=== PATIENT | male | born 1965 | race American Indian/Alaskan Native ===

== ENCOUNTER 2019-12-02 07:37 | Emergency (ER) | payer SELFPAY ==
--- NOTE | 2019-12-02 08:34 | Emergency Department Report ---
HPI - General Chief Complaint: Psych Time Seen by Provider: 12/02/19 08:18 - HPI HPI: 54-year-old -[place] male presents to the emergency department with a complaint of depression and suicidal ideations and attempts. Patient says that earlier today he jumped onto [employer] tracks hoping to be run over by a train. The police were called and they helped him off of the tracks and then called for EMS transport. The patient also says that he overdosed on Ambien and alcohol about 1 week ago trying to end his life but was unsuccessful. 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 Patient says he is unable to cope with his decreased vision and he has started having auditory hallucinations, and these voices are telling him to kill himself. He denies any diagnosed psychiatric history and has never been to a psychiatric facility previously. ED Past Medical Hx - Past Medical History Previous Medical History?: Yes Hx Hypertension: Yes Hx Diabetes: Yes - Surgical History Additional Surgical History: hx of brain tumor - Social History Smoking Status: Never Smoker Substance Use Type: None ED Review of Systems ROS: Stated complaint: SUICIDAL Other details as noted in HPI Comment: All other systems reviewed and negative Constitutional: denies: chills, fever Eyes: denies: eye pain, eye discharge ENT: denies: ear pain, throat pain Respiratory: denies: cough, shortness of breath Cardiovascular: denies: chest pain, palpitations Gastrointestinal: denies: abdominal pain, vomiting Musculoskeletal: denies: back pain, arthralgia Skin: denies: rash, lesions Neurological: denies: headache, weakness Psychiatric: auditory hallucinations, suicidal thoughts. denies: homicidal thoughts Physical Exam - Physical Exam Vital Signs: Vital Signs 12/02/19 12/02/19 08:04 08:09 Temperature 98.0 F 98 F Pulse Rate 70 70 Respiratory 18 18 Rate Blood Pressure 129/78 Blood Pressure 129/78 [Left] O2 Sat by Pulse 98 98 Oximetry Physical Exam: GENERAL: The patient is well-developed well-nourished. HENT: Normocephalic. Atraumatic. Patient has moist mucous membranes. EYES: Extraocular motions are intact. NECK: Supple. Trachea is midline. CHEST/LUNGS: Clear to auscultation. There is no respiratory distress noted. HEART/CARDIOVASCULAR: Regular. There is no tachycardia. ABDOMEN: Abdomen is soft, nontender. Patient has normal bowel sounds. SKIN: Skin is warm and dry. NEURO: The patient is awake, alert, and oriented. The patient is cooperative. Normal speech. MUSCULOSKELETAL: There is no tenderness or deformity. There is no evidence of acute injury. ED Course Vital Signs 12/02/19 12/02/19 08:04 08:09 Temperature 98.0 F 98 F Pulse Rate 70 70 Respiratory 18 18 Rate Blood Pressure 129/78 Blood Pressure 129/78 [Left] O2 Sat by Pulse 98 98 Oximetry ED Medical Decision Making - Lab Data Result diagrams: 12/02/19 08:41 12/02/19 08:41 - Medical Decision Making This patient presents to the emergency department with a complaint of suicidal ideations and some possible attempts. At the time of my examination he is depressed appearing but otherwise calm and cooperative. Labs have been unremarkable except for a urine drug screen positive for cocaine. He does not appear to be acutely intoxicated., Also, the patient complains of some command hallucinations telling him to harm himself. Vital signs stable throughout his ED course. The patient was made a 1013 secondary to the suicidal ideations. He is medically cleared for psychiatric placement. - Differential Diagnosis Bipolar disorder, schizophrenia, schizoaffective, substance abuse Critical Care Time: No Critical care attestation.: If time is entered above; I have spent that time in minutes in the direct care o f this critically ill patient, excluding procedure time. ED Disposition Clinical Impression: Depression, Suicidal ideations Disposition: [id number]/TX-[id number] PSY HOSP/PSY UNIT Is pt being admited?: No Condition: Stable Time of Disposition: 13:39
[2019-12-02 09:08] LABS: Basophils # (Auto) 0.1 K/mm3 (0.0-0.1); Basophils % (Auto) 0.8 % (0.0-1.8); Eosinophils # (Auto) 0.2 K/mm3 (0.0-0.4); Eosinophils % (Auto) 1.7 % (0.0-4.3); Hematocrit 38.4 % (35.5-45.6); Hemoglobin 12.7 gm/dl (11.8-15.2); Lymphocytes # (Auto) 2.4 K/mm3 (1.2-5.4); Lymphocytes % (Auto) 26.4 % (13.4-35.0); Mean Corpuscular HGB Conc 33 % (32-34); Mean Corpuscular Volume 86 fl (84-94); Monocytes # (Auto) 0.7 K/mm3 (0.0-0.8); Monocytes % (Auto) 7.8 % (0.0-7.3); Platelet Count 204 K/mm3 (140-440); Red Blood Count 4.46 M/mm3 (3.65-5.03); Red Cell Distribution Width 17.1 % (13.2-15.2)
[2019-12-02 09:25] LABS: BUN/Creatinine Ratio 14; Blood Urea Nitrogen 13 mg/dL (9-20); Calcium 9.1 mg/dL (8.4-10.2); Hemolysis Index 49
[2019-12-02 11:46] LABS: Bilirubin,Urine NEG (Negative); Blood,Urine NEG (Negative); Color,Urine Colorless (Yellow); Protein,Urine <15 mg/dL mg/dL (Negative); Urobilinogen,Urine < 2.0 mg/dL (<2.0); WBC,Urine < 1.0 /HPF (0.0-6.0)
[2019-12-02 11:53] LABS: Amphetamine Screen,Urine PRESUMPTIVE NEGATIVE; Benzodiazepines Screen,Urine PRESUMPTIVE NEGATIVE; Cannabinoid Screen,Urine PRESUMPTIVE NEGATIVE; Methadone Screen,Urine PRESUMPTIVE NEGATIVE; Opiate Screen,Urine PRESUMPTIVE NEGATIVE
[2019-12-02 12:09] LABS: Cocaine Screen,Urine PRESUMPTIVE POSITIVE
--- NOTE | 2019-12-03 01:18 | Cat Scan Report ---
CT HEAD/BRAIN WO CON INDICATION / CLINICAL INFORMATION: History of brain tumor as per pt; psych pt clearance. TECHNIQUE: All CT scans at this location are performed using CT dose reduction for ALARA by means of automated e xposure control. COMPARISON: None available. FINDINGS: There is a right frontotemporal craniotomy defect with associated underlying moderate encephalomalaci a present. No other focal lesion is seen. There is no evidence of mass effect or intracranial hemorrh age. No evidence of major vessel occlusion is seen. The visualized paranasal sinuses and mastoid air cells are clear. IMPRESSION: Prior right frontotemporal craniotomy with underlying encephalomalacia. No acute abnormal ity. Signer Name: Roberto Cantu MD Signed: 12/03/2019 1:13 AM Workstation Name: [id number]
--- NOTE | 2019-12-03 11:38 | Consultation ---
History of Present Illness - Reason for Consult Consult date: 12/03/19 Reason for consult: Psych eval Requesting physician: MARLON BURGESS - Chief Complaint Chief complaint: I jumped in front of a train - History of Present Psychiatric Illness Patient is a 54yo single employed male with no psychiatric history. He presents to the ED after he attempted to kill himself by jumping in front of a train. He continues to endorse feeling depressed and suicidal this morning. He reports that he is hearing voices that tell him to kill himself. UDS was positive for Cocaine on admission. Per ED documentation yesterday am, Patient says that earlier today he jumped onto [employer] tracks hoping to be run over by a train. The police were called and they helped him off of the tracks and then called for EMS transport. The patient also says that he overdosed on Ambien and alcohol about 1 week ago tryin g to end his life but was unsuccessful. 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 Patient says he is unable to cope with his decreased vision and he has started having auditory hallucinations, and these voices are telling him to kill himself. He denies any diagnosed psychiatric history and has never been to a psychiatric facility previously. 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 Family Psychiatric History None reported or documented SOCIAL HISTORY Marital Status: Single Living Arrangements: alone Employment Status: employed Access to guns/weapons: Patient denies Education: High School History of Abuse: Patient denies Legal History: Patient denies ROS: Constitutional: Negative for weight loss ENT: Negative for stridor Respiratory: Negative for cough or hemoptysis All other systems reviewed and are negative MENTAL STATUS General Appearance and Behavior: age appropriate, poor eye contact, cooperative with questioning and polite Cooperation: Cooperative Psychomotor Behavior: within normal limits Mood: depressed Affect and affective range: Congruent with stated mood Thought Process: Fluent/Logical and Goal-directed Thought Content: AH Speech: Normal volume and Regular rate and rhythm Intellectual Functioning Average Suicidal Ideation: Yes Homicidal Ideation: Denies HI Impulse Control: intact Insight and Judgment: normal insight and judgment Memory: Normal Attention: Normal Orientation: alert and oriented Diagnosis: Substance induced psychosis Alcohol and Cocaine use disorder Major depressive disorder, single episode severe RECOMMENDATIONS MEDICATIONS: Olanzapine 5mg bid Risks, benefits and alternatives of medications discussed with the patient, questions answered and consent obtained from patient. PSYCHOTHERAPY: Supportive psychotherapy provided MEDICAL: Per primary team. DATA INTEGRITY CONSULTANT: Yes DISPOSITION: Acute inpatient psychiatric hospitalization when medically stable LEGAL STATUS: 1013 FOLLOW-UP: Will follow I have reviewed this treatment plan, including potential risks and benefits of medications, with the patient and/or family members and relevant hospital providers. Please contact with any questions and/or concerns. Medications and Allergies Allergies Allergy/AdvReac Type Severity Reaction Status Date / Time No Known Allergies Allergy Unverified 12/02/19 08:27 Mental Status Exam - Vital signs Last Vital Signs Temp 98.4 F 12/03/19 07:00 Pulse 74 12/03/19 07:00 Resp 18 12/03/19 07:00 BP 122/83 12/03/19 07:00 Pulse Ox 98 12/03/19 07:00 Results Result Diagrams: 12/02/19 08:41 12/02/19 08:41 All other labs normal.
[2019-12-04 05:04] VITALS: BP 126/78
== END 2019-12-04 10:53 ==
LOC: ED 07:37
DX: F32.9 Major depressive disorder, single episode, unspecified (principal); R45.851 Suicidal ideations; R44.0 Auditory hallucinations; I10 Essential (primary) hypertension; E11.9 Type 2 diabetes mellitus without complications
CPT/HCPCS: 36415; 70450; 80048; 80307; 80320; 81001; 85025; G0480